=== PATIENT | male | born 1960 | race Caucasian/White ===

== ENCOUNTER 2024-09-27 11:10 | Day surgery (SDC) | payer MEDICAID, SELFPAY ==
[2024-09-27] VITALS (11 sets, daily range): BP systolic 126–159; BP diastolic 92–109; PULSE 64–96; RESP 7–19; TEMP 36.6–36.7; O2SAT 94–99; BMI 33.9
[2024-09-27] MEDS: MIDAZOLAM INJ 1 MG/ML VIAL 2 ML (ASD USE ONLY) 2 MG IV (12:14)
[2024-09-27] MEDS: fentaNYL CIT INJ 50 mCg/ML AMP 2ML (ASD USE ONLY) IV (12:16)
--- NOTE | 2024-09-27 12:41 | SUR.PHASEII ---
PATIENT INTO RECOVERY ROOM WITH NO ACUTE DISTRESS NOTED, V/S STABLE, NO COMPLAINTS OF PAIN OR NAUSEA AT THIS TIME. PATIENT ACTIVELY PASSING FLATUS. REPORT RECEIVED FROM SUSHMA LANG.
--- NOTE | 2024-09-27 12:45 | SUR.PHASEII ---
INFORMED OF PATIENT'S CARDIAC RHYTHM A-FIB. NO NEW ORDERS RECEIVED PATIENT HAS HISTORY OF A-FIB.
== END 2024-09-27 13:20 | disposition home or self-care (01) ==
PROVIDERS: PCP Physician Assistant; Referring Provider Surgery; Visit Provider Surgery
PROC: 0DBE8ZX Excision of Large Intestine, Via Natural or Artificial Opening Endoscopic, Diagnostic (ICD-10-PCS; CPT 45380; principal; 2024-09-27 13:45)
DX: Z12.11 Encounter for screening for malignant neoplasm of colon (principal); K57.30 Diverticulosis of large intestine without perforation or abscess without bleeding
CPT/HCPCS: 45378; A4217; J2250; J3010